=== PATIENT | male | born 1965 | race African-American/Black ===

== ENCOUNTER 2022-02-03 10:04 | Emergency (ER) | payer SELFPAY ==
[~2022-02-03] VITALS: Ht 180.3 cm; Wt 162.9 kg
[2022-02-03 10:50] VITALS: BP 149/96
[2022-02-03] MEDS ORDERED: FAMOTIDINE 20 MG TABLET. PO ONE (11:00)
[2022-02-03] MEDS ORDERED: ONDANSETRON ODT 4 MG TAB.RAPDIS. PO ONE (11:00)
[2022-02-03] MEDS ORDERED: SULF1TAB24 PO (11:03)
[2022-02-03] MEDS ORDERED: FAMO10TA26 PO (11:03)
[2022-02-03] MEDS ORDERED: ONDA4TAB12 PO (11:03)
--- NOTE | 2022-02-03 11:03 | PHYS DOC ---
Past Medical History Past Medical History: No Pertinent History Past Surgical History: No Surgical History General Adult EDM: Chief Complaint: INSECT BITE HPI: HPI: Patient is a 56 year old male who presents with insect bite on the underside of his left arm. Patient states he first noticed the bite 2 days ago, but it has since been inflamed. He "popped it" and purulent drainage came out. Patient has additional complaint of mild epigastric pain with nausea. Patient denies fever, chills, generalized weakness, hematemesis, diarrhea. Patient has no other complaints at this time. Review of Systems: Review of Systems: ROS negative or noncontributory except as mentioned in HPI. Heart Score: C/O Chest Pain: No Allergies: Allergies: Allergies Coded Allergies Type Severity Reaction Last Updated Verified No Known Drug Allergies 02/03/22 No Physical Exam: PE: Constitutional: Morbidly obese, no acute distress, non-toxic appearance. HENT: Normocephalic, atraumatic, bilateral external ears normal, nose normal. Eyes: EOMI, conjunctiva normal, no discharge. Neck: Normal range of motion, no stridor. Abdomen: Protuberant, no tenderness. Skin: Approximately 2 cm of induration with open head noted on the underside of left upper arm without fluctuance or active drainage at this time. Skin otherwise warm, dry, no erythema, no rash. Extremities: No tenderness, no cyanosis, no clubbing, ROM intact, no edema. Neurologic: Alert and oriented x4, normal motor function, normal sensory function, no focal deficits noted. Current Patient Data: Vital Signs: Vital Signs Date Time Temp Pulse Resp B/P (MAP) Pulse Ox O2 Delivery O2 Flow Rate FiO2 02/03/22 10:50 98.2 75 17 149/96 (113) 96 Room Air 98.2 Course & Med Decision Making: Course & Med Decision Making Pertinent Labs and Imaging studies reviewed. (See chart for details) [employer] Disclaimer: [employer] Disclaimer: This electronic medical record was generated, in whole or in part, using a voice recognition dictation system. Departure Departure Impression: Primary Impression: Cellulitis of upper arm Additional Impressions: Gastritis Qualified Codes: K29.70 - Gastritis, unspecified, without bleeding Elevated blood pressure reading Disposition: HOME / SELF CARE / HOMELESS Condition: IMPROVED Patient Instructions: Cellulitis, [id number], Gastritis, Adult, Ndyy-wd-Xked, Insect Bite, [id number] Additional Instructions: EMERGENCY DEPARTMENT GENERAL DISCHARGE INSTRUCTIONS Thank you for coming to [facility] Emergency Department (ED) today and trusting us with you care. We trust that you had a positive experience in our Emergency Department. If you wish to speak to the department management, you may call the director at . YOUR FOLLOW UP INSTRUCTIONS ARE FOLLOWS: 1. Follow up with your primary care doctor. If you do not have a primary doctor, please ask for a resource list of physicians or clinics that may be able to assist you with follow up care. 2. The emergency provider has interpreted your imaging studies, if any were ordered. The radiology microarray specialist also reviewed them. If there is a change in the findings, you will be notified in 48 hours when at all possible. 3. If a lab test or culture has been done, your results will be reviewed and you will be notified if you need a change in treatment. 4. Follow instructions verbalized to you and refer to the printouts if needed. ADDITIONAL INSTRUCTIONS AND INFORMATION: 1. Your care today has been supervised by a physician who is specially trained in emergency care. Many problems require more than one evaluation for a complete diagnosis and treatment. We recommend that you schedule your follow up appointment as recommended to ensure complete treatment of you illness or injury. If you are unable to obtain follow up care and continue to have a problem, or if your condition worsens, we recommend that you return to the ED. 2. We are not able to safely determine your condition over the phone nor are we able to give sound medical advice over the phone. For these safety reasons, if you call for medical advice we will ask you to come to the ED for further evaluation. 3. If you have any questions regarding these discharge instructions please call the ED at . SAFETY INFORMATION: In the interest of safety, wellness, and injury prevention; we encourage you to wear your seat belt, if you smoke; quite smoking, and we encourage family to use a protective helmet for bicycling and other sporting events that present an increased risk for head injury. IF YOUR SYMPTOMS WORSEN OR NEW SYMPTOMS DEVELOP, OR YOU HAVE CONCERNS ABOUT YOUR CONDITION; OR IF YOUR CONDITION WORSENS WHILE YOU ARE WAITING FOR YOUR FOLLOW UP APPOINTMENT; EITHER CONTACT YOUR PRIMARY CARE DOCTOR, THE PHYSICIAN WHOSE NAME AND NUMBER YOU WERE GIVEN, OR RETURN TO THE ED IMMEDIATELY. Scripts Sulfamethoxazole/Trimethoprim (BACTRIM DS TABLET) 1 Each Tablet 1 TAB PO BID for 7 Days, #14 TAB 0 Refills Prov: EJ HO 02/03/22 Famotidine (PEPCID AC) 10 Mg Tablet 1 TAB PO DAILY for 30 Days, #30 TAB 0 Refills Prov: EJ HO 02/03/22 Ondansetron (ONDANSETRON ODT) 4 Mg Tab.rapdis 1 TAB PO PRN Q6-8HRS, #20 TAB Prov: EJ HO 02/03/22 EJ HO February 03, 2022 11:03
[2022-02-06] MEDS ORDERED: PROM25TA10 PO (15:28)
== END 2022-02-03 12:13 | disposition home or self-care (01) ==
LOC: ER 10:04
DX: S40.862A Insect bite (nonvenomous) of left upper arm, initial encounter (principal); L03.114 Cellulitis of left upper limb; K29.70 Gastritis, unspecified, without bleeding; R03.0 Elevated blood-pressure reading, without diagnosis of hypertension; W57.XXXA Bitten or stung by nonvenomous insect and other nonvenomous arthropods, initial encounter; Y93.89 Activity, other specified; Y92.89 Other specified places as the place of occurrence of the external cause; Y99.8 Other external cause status
CPT/HCPCS: 99283

== ENCOUNTER → 2022-02-06 | Emergency (ER) | payer SELFPAY ==
[~2022-02-06] VITALS: Ht 180.3 cm; Wt 164.0 kg
[~2022-02-06] MED LIST: FAMO10TA26 PO; ONDA4TAB12 PO; PROM25TA10 PO; SULF1TAB24 PO
--- NOTE | 2022-02-06 11:40 | PHYS DOC ---
Past Medical History Past Medical History: No Pertinent History Past Surgical History: No Surgical History Smoking Status: Current Every Day Smoker Alcohol Use: None General Adult EDM: Chief Complaint: INSECT BITE HPI: HPI: Patient is a 56 year old male who presents to the emergency department today with complaints of nausea, vomiting and abdominal cramping. Patient states he was seen here in emergency department on for a "spider bite." He state s that at that time he was prescribed Bactrim and Zofran. He states this since then he has had 2-3 episodes of nausea and vomiting daily. He also has intermittent stomach cramping. He states his stomach cramping last 4 to 5 minutes and then resolves. He states he has 2-3 episodes of cramping per day. The cramping is generalized across his entire abdomen. It does not radiate. He states that it is about a 10 out of 10 when it occurs. He states it only occurs while he is awake and does not wake him from sleep. There are no palliative or provocative factors for the cramps. He denies any fevers or chills. He denies any diarrhea. He denies any burning or painful urination. He denies any blood in his urine. Review of Systems: Review of Systems: Constitutional: Denies fever or chills. [] Eyes: Denies change in visual acuity. [] HENT: Denies nasal congestion or sore throat. [] Respiratory: Denies cough or shortness of breath. [] Cardiovascular: Denies chest pain or edema. [] GI: Positive for abdominal cramping, nausea and vomiting. : Denies dysuria. [] Musculoskeletal: Denies back pain or joint pain. [] Integument: Denies rash. [] Neurologic: Denies headache, focal weakness or sensory changes. [] Endocrine: Denies polyuria or polydipsia. [] Lymphatic: Denies swollen glands. [] Psychiatric: Denies depression or anxiety. [] Heart Score: C/O Chest Pain: No Family History: Family History: Noncontributory Current Medications: Current Medications Medications (Trade) Dose Ordered Sig/Ivelisse Start Time Stop Time Status Last Admin Dose Admin Diphenhydramine HCl (Benadryl) 25 mg 1X ONCE 02/06/22 11:30 02/06/22 11:31 UNV Prochlorperazine Edisylate (Compazine) 10 mg 1X ONCE 02/06/22 11:30 02/06/22 11:31 UNV Ringer's Solution 1,000 ml @ 1,000 mls/hr Q1H 02/06/22 11:30 02/06/22 12:29 UNV Allergies: Allergies: Allergies Coded Allergies Type Severity Reaction Last Updated Verified No Known Drug Allergies 02/03/22 No Physical Exam: PE: Constitutional: Well developed, well nourished, no acute distress, non-toxic appearance. [] HENT: Normocephalic, atraumatic, bilateral external ears normal, oropharynx moist, no oral exudates, nose normal. [] Eyes: PERRLA, EOMI, conjunctiva normal, no discharge. [] Neck: Normal range of motion, no tenderness, supple, no stridor. [] Cardiovascular:Heart rate regular rhythm, no murmur [] Lungs & Thorax: Bilateral breath sounds clear to auscultation [] Abdomen: Bowel sounds normal, soft, no tenderness, no masses, no pulsatile masses. There is an easily reducible umbilical hernia. [] Skin: Warm, dry, no erythema, no rash. There is a healing abscess to the left humerus. [] Back: No tenderness, no CVA tenderness. [] Extremities: No tenderness, no cyanosis, no clubbing, ROM intact, no edema. [] Neurologic: Alert and oriented X 3, normal motor function, normal sensory function, no focal deficits noted. [] Psychologic: Affect normal, judgement normal, mood normal. [] Current Patient Data: Labs: Laboratory Tests Test 02/06/22 11:40 02/06/22 12:08 White Blood Count 8.8 x10^3/uL Red Blood Count 5.68 x10^6/uL Hemoglobin 16.5 g/dL Hematocrit 49.8 % Mean Corpuscular Volume 88 fL Mean Corpuscular Hemoglobin 29 pg Mean Corpuscular Hemoglobin Concent 33 g/dL Red Cell Distribution Width 15.2 % Platelet Count 287 x10^3/uL Neutrophils (%) (Auto) 62 % Lymphocytes (%) (Auto) 30 % Monocytes (%) (Auto) 6 % Eosinophils (%) (Auto) 1 % Basophils (%) (Auto) 1 % Neutrophils # (Auto) 5.4 x10^3/uL Lymphocytes # (Auto) 2.7 x10^3/uL Monocytes # (Auto) 0.5 x10^3/uL Eosinophils # (Auto) 0.1 x10^3/uL Basophils # (Auto) 0.1 x10^3/uL Sodium Level 136 mmol/L Potassium Level 4.3 mmol/L Chloride Level 99 mmol/L Carbon Dioxide Level 31 mmol/L Anion Gap 6 Blood Urea Nitrogen 6 mg/dL Creatinine 1.0 mg/dL Estimated GFR (Cockcroft-Gault) 94.2 BUN/Creatinine Ratio 6 Glucose Level 106 mg/dL Calcium Level 8.8 mg/dL Total Bilirubin 0.7 mg/dL Aspartate Amino Transf (AST/SGOT) 14 U/L Alanine Aminotransferase (ALT/SGPT) 15 U/L Alkaline Phosphatase 77 U/L Total Protein 8.2 g/dL Albumin 3.2 g/dL Albumin/Globulin Ratio 0.6 Lipase 588 U/L Urine Collection Type Unknown Urine Color (Auto) Yellow Urine Turbidity Clear Urine pH (Auto) 6.0 Urine Specific [place] 1.021 Urine Protein (Auto) Negative mg/dL Urine Glucose (Auto)(UA) Negative mg/dL Urine Ketones (Auto) Negative mg/dL Urine Blood (Auto) Trace Urine Nitrite Negative Urine Bilirubin (Auto) Negative Urine Urobilinogen (Auto) 4 mg/dL Urine Leukocyte Esterase (Auto) Negative Urine RBC Occ /HPF Urine WBC 0 /HPF Urine Squamous Epithelial Cells Few /LPF Urine Bacteria 0 /HPF Urine Mucus Slight /LPF Current Medications Medications (Trade) Dose Ordered Sig/Ivelisse Route PRN Reason Start Time Stop Time Status Last Admin Dose Admin Ringer's Solution 1,000 ml @ 1,000 mls/hr Q1H IV 02/06/22 11:30 02/06/22 12:29 DC 02/06/22 11:47 Prochlorperazine Edisylate (Compazine) 10 mg 1X ONCE IVP 02/06/22 11:30 02/06/22 11:31 DC 02/06/22 11:46 Diphenhydramine HCl (Benadryl) 25 mg 1X ONCE IVP 02/06/22 11:30 02/06/22 11:31 DC 02/06/22 11:50 Vital Signs: Vital Signs Date Time Temp Pulse Resp B/P (MAP) Pulse Ox O2 Delivery O2 Flow Rate FiO2 02/06/22 11:08 99.1 67 18 184/94 (124) 97 Room Air 99.1 EKG: EKG: EKG shows normal sinus rhythm with a rate of 56. There is a leftward axis deviation. Intervals are normal. There is no evidence of any ischemia or infarction. [] Radiology/Procedures: Radiology/Procedures: PROCEDURE: ABDOMEN LTD INDICATION: Reason: RUQ pain. Elevated lipase / Spl. Instructions: / History: COMPARISON: None. TECHNIQUE: Grayscale and color ultrasound images obtained through the abdomen. FINDINGS: Pancreas: Obscured by overlying structures. Liver: Echogenic with a large portion of the liver obscured by overlying structures. Gallbladder: No definite stones or wall thickening. Common Bile Duct: Not dilated. Right Kidney: No hydronephrosis. Aorta/IVC: Limited visualization IMPRESSION: * Liver is echogenic which can be seen with fatty infiltration. * Limited exam secondary to overlying structures obscuring. Course & Med Decision Making: Course & Med Decision Making Patient evaluated at the bedside. He was given Compazine and Benadryl for his nausea and vomiting. Basic labs were obtained and unremarkable except for a lipase of 588. Given his elevated lipase and his pain a right upper quadrant ultrasound was performed which shows no acute abnormality although was limited by overlying structures. I did discuss the patient with hospitalist who was amenable to admitting him, but patient does not wish to be admitted at this time. He states he has a wedding to go to at 10:00 in the morning. Given this we will discharge him home with a prescription for Phenergan and have him f ollow-up with his PCP. Vera Disclaimer: Vera Disclaimer: This electronic medical record was generated, in whole or in part, using a voice recognition dictation system. Departure Departure Impression: Primary Impression: Pancreatitis Referrals: NO PCP (PCP) Follow up in 2-3 days. [employer] MISSIONS Patient Instructions: Acute Pancreatitis, [id number] Scripts Promethazine Hcl (PROMETHAZINE HCL) 25 Mg Tablet 25 MG PO Q6H PRN for NAUSEA/VOMITING for 5 Days, #20 TAB Prov: CRISTIANA WESTBROOK MD 02/06/22 CRISTIANA WESTBROOK MD February 06, 2022 11:40
[2022-02-06 11:46] LABS: BASO # 0.1 x10^3/uL (0.0-0.2); BASO % 1 % (0-3); EOS # 0.1 x10^3/uL (0.0-0.7); EOS % 1 % (0-3); HEMATOCRIT 49.8 % (39.0-53.0); HEMOGLOBIN 16.5 g/dL (13.0-17.5); LYMPH # 2.7 x10^3/uL (1.0-4.8); LYMPH % 30 % (24-48); MEAN CORPUSCULAR HEMOGLOBIN 29 pg (25-35); MEAN CORPUSCULAR HGB CONC 33 g/dL (31-37); MEAN CORPUSCULAR VOLUME 88 fL (79-100); MONO # 0.5 x10^3/uL (0.0-1.1); MONO % 6 % (0-9); NEUT # 5.4 x10^3/uL (1.8-7.7); NEUT % 62 % (31-73); PLATELET COUNT 287 x10^3/uL (140-400); RED BLOOD COUNT 5.68 x10^6/uL (4.30-5.70); RED CELL DISTRIBUTION WIDTH 15.2 % (11.5-14.5); WHITE BLOOD COUNT 8.8 x10^3/uL (4.0-11.0)
[2022-02-06] MEDS: PROCHLORPERAZINE 10 MG/2 ML VIAL. IVP ONE (11:46)
[2022-02-06] MEDS: IV RINGERS,LACTATED 1000ML 1,000 ML IV SCH (11:47)
[2022-02-06] MEDS: diphenhydrAMINE 50 MG/ML VIAL IVP ONE (11:50)
[2022-02-06 11:56] LABS: CALCIUM 8.8 mg/dL (8.5-10.1); GFR 94.2; POTASSIUM 4.3 mmol/L (3.5-5.1)
[2022-02-06 12:02] LABS: ALBUMIN 3.2 g/dL (3.4-5.0); ALBUMIN/GLOBULIN RATIO 0.6 (1.0-1.7); TOTAL BILIRUBIN 0.7 mg/dL (0.2-1.0); TOTAL PROTEIN 8.2 g/dL (6.4-8.2)
[2022-02-06 12:24] LABS: BACTERIA,URINE 0 /HPF (0-FEW); RBC,URINE OCC /HPF (0-2); WBC,URINE 0 /HPF (0-4)
--- NOTE | 2022-02-06 14:21 | RAD ---
INDICATION: Reason: RUQ pain. Elevated lipase / Spl. Instructions: / History: COMPARISON: None. TECHNIQUE: Grayscale and color ultrasound images obtained through the abdomen. FINDINGS: Pancreas: Obscured by overlying structures. Liver: Echogenic with a large portion of the liver obscured by overlying structures. Gallbladder: No definite stones or wall thickening. Common Bile Duct: Not dilated. Right Kidney: No hydronephrosis. Aorta/IVC: Limited visualization IMPRESSION: * Liver is echogenic which can be seen with fatty infiltration. * Limited exam secondary to overlying structures obscuring. Electronically signed by: Modesto Christianson MD (02/06/2022 2:19 PM) [id number]
[2022-02-06 15:17] VITALS: BP 159/82
--- NOTE | 2022-02-07 00:58 | EKG ---
[facility] [address] [place] [address] Test Date: 2022-02-06 Test Time: 12:18:09 Pat Name: BERTHA GARCIA Department: Room: Gender: M Access Consultant: : [id number] Requested By: CRISTIANA WESTBROOK Order Number: [id number] Reading MD: Yovanny Lock Measurements Intervals [place] Rate: 56 P: 43 NH: 200 QRS: -3 QRSD: 116 T: 16 QT: 464 QTc: 450 Interpretive Statements SINUS RHYTHM LEFTWARD AXIS INCOMPLETE RIGHT BUNDLE BRANCH BLOCK Electronically Signed On 02-07-2022 11:03:44 CDT by Yovanny Lock
== END ==
LOC: ER 11:05
DX: K85.90 Acute pancreatitis without necrosis or infection, unspecified (principal); F17.200 Nicotine dependence, unspecified, uncomplicated
CPT/HCPCS: 36415; 76705; 80053; 81001; 83690; 85025; 93005; 96361; 96374; 96375; 99284; J0780; J1200; J7120